=== PATIENT | female | born 1960 | race Caucasian/White ===

== ENCOUNTER 2020-07-16 15:35 | Outpatient (REF) | payer OTHER, SELFPAY ==
[2020-07-16 18:33] LABS: Thyroid Stimulating Hormone 2.99 mIU/mL (0.32-4.0)
== END 2020-07-16 15:36 | disposition home or self-care (01) ==
LOC: HO.MANLR 15:35
PROVIDERS: PCP Internal Medicine; Visit Provider Internal Medicine
DX: E03.9 Hypothyroidism, unspecified (principal)
CPT/HCPCS: 84439; 84443

== ENCOUNTER 2021-03-28 15:00 | Outpatient (REF) | payer OTHER, SELFPAY ==
[2021-03-28 18:44] LABS: Free T4 (Free Thyroxine) 1.05 ng/dL (0.71-1.85); Thyroid Stimulating Hormone 2.62 uIU/mL (0.32-4.0); Vitamin D 25-OH Total 45.5 ng/mL (>30)
== END 2021-03-28 15:01 | disposition home or self-care (01) ==
LOC: HO.MANLDS 15:00
PROVIDERS: PCP Internal Medicine; Visit Provider Physician Assistant
DX: E03.9 Hypothyroidism, unspecified (principal); E55.9 Vitamin D deficiency, unspecified
CPT/HCPCS: 36415; 82306; 84439; 84443

== ENCOUNTER 2022-02-27 08:53 | Outpatient (REF) | payer OTHER, SELFPAY ==
[2022-02-27 11:06] LABS: MANUAL DIFF FLAG NO
[2022-02-27 11:15] LABS: Basophils Absolute Auto 0.1 X10*3/uL (0.0-0.2); Basophils Percent Auto 1.1 % (0-2); Eosinophils Absolute Auto 0.4 X10*3/uL (0.0-0.4); Eosinophils Percent Auto 5.7 % (0-4); Hematocrit 42.6 % (37.0-47.0); Hemoglobin 14.1 g/dl (12.0-16.0); Imm Gran Abs Auto 0.08 X10*3/uL (0.00-0.03); Imm Gran Pct Auto 1.1 % (0.0-0.4); Lymphocytes Absolute Auto 2.2 X10*3/uL (1.2-4.9); Lymphocytes Percent Auto 29.5 % (20-40); Mean Corpuscular HGB Conc 33.1 g/dl (31.0-35.0); Mean Corpuscular Hemoglobin 30.3 pg (27.0-33.0); Mean Corpuscular Volume 91.6 fL (80.0-98.0); Mean Platelet Volume 12.2 fL (9.4-12.3); Monocytes Absolute Auto 0.9 X10*3/uL (0.1-1.2); Monocytes Percent Auto 11.8 % (2-11); Neutrophils Absolute Auto 3.9 x10*3/uL (2.0-8.3); Neutrophils Percent Auto 50.8 % (45-73); Platelet Count 327 X10*3/uL (160-400); Red Blood Count 4.65 X10*6/uL (4.20-5.50); Red Cell Distribution Width 12.2 % (11.0-16.0); White Blood Count 7.6 X10*3/uL (4.8-10.8)
[2022-02-27 11:50] LABS: Free T4 (Free Thyroxine) 0.98 ng/dL (0.71-1.85); Thyroid Stimulating Hormone 2.74 uIU/mL (0.32-4.0); Vitamin D 25-OH Total 32.4 ng/mL (>30)
[2022-02-27 11:53] LABS: Alanine Aminotransferase 20 U/L (0-31); Albumin Level 4.3 g/dL (3.5-5.0); Alkaline Phosphatase 77 U/L (39-117); Anion Gap 13 (12-20); Aspartate Amino Transferase 21 U/L (5-31); Bilirubin Total 0.4 mg/dL (0.0-1.0); Blood Urea Nitrogen 13 mg/dL (9-16); Carbon Dioxide 28 mmol/L (22-29); Chloride 101 mmol/L (96-108); Cholesterol 227 mg/dL; Estimated Glomerular Filt Rate > 60; Glucose Random 96 mg/dL (60-115); HDL Cholesterol 53 mg/dL; LDL Cholesterol Calculated 151 mg/dl; Sodium 137 mmol/L (135-145); Total Protein 7.3 g/dL (6.5-8.0); Triglycerides 117 mg/dL
== END 2022-02-27 08:54 | disposition home or self-care (01) ==
LOC: HO.MANLDS 08:53
PROVIDERS: PCP Internal Medicine; Visit Provider Physician Assistant
DX: Z23 Encounter for immunization (principal)
CPT/HCPCS: 36415; 80053; 80061; 82306; 84439; 84443; 85025

== ENCOUNTER 2023-03-31 11:37 | Outpatient (REF) | payer OTHER, SELFPAY ==
[2023-03-31 13:59] LABS: MANUAL DIFF FLAG NO
[2023-03-31 14:16] LABS: Basophils Absolute Auto 0.1 X10*3/uL (0.0-0.2); Basophils Percent Auto 1.1 % (0-2); Eosinophils Absolute Auto 0.2 X10*3/uL (0.0-0.4); Eosinophils Percent Auto 2.4 % (0-4); Hematocrit 42.5 % (37.0-47.0); Hemoglobin 14.1 g/dl (12.0-16.0); Imm Gran Abs Auto 0.02 X10*3/uL (0.00-0.03); Imm Gran Pct Auto 0.3 % (0.0-0.4); Lymphocytes Percent Auto 31.3 % (20-40); Mean Corpuscular HGB Conc 33.2 g/dl (31.0-35.0); Mean Corpuscular Hemoglobin 30.8 pg (27.0-33.0); Mean Corpuscular Volume 92.8 fL (80.0-98.0); Monocytes Absolute Auto 0.8 X10*3/uL (0.1-1.2); Monocytes Percent Auto 12.2 % (2-11); Neutrophils Absolute Auto 3.3 x10*3/uL (2.0-8.3); Neutrophils Percent Auto 52.7 % (45-73); Platelet Count 271 X10*3/uL (160-400); Red Blood Count 4.58 X10*6/uL (4.20-5.50); Red Cell Distribution Width 12.5 % (11.0-16.0); White Blood Count 6.2 X10*3/uL (4.8-10.8)
[2023-03-31 14:32] LABS: Alanine Aminotransferase 19 U/L (0-31); Albumin Level 4.1 g/dL (3.5-5.0); Alkaline Phosphatase 90 U/L (39-117); Anion Gap 14 (12-20); Aspartate Amino Transferase 23 U/L (5-31); Bilirubin Total 0.8 mg/dL (0.0-1.0); Blood Urea Nitrogen 9 mg/dL (9-16); Calcium 9.8 mg/dL (8.4-10.2); Carbon Dioxide 27 mmol/L (22-29); Chloride 104 mmol/L (96-108); Cholesterol 196 mg/dL; Estimated Glomerular Filt Rate > 60; Glucose Random 101 mg/dL (60-115); HDL Cholesterol 58 mg/dL; LDL Cholesterol Calculated 121 mg/dl; Potassium 4.8 mmol/L (3.3-5.1); Sodium 140 mmol/L (135-145); Total Protein 7.2 g/dL (6.5-8.0); Triglycerides 89 mg/dL
[2023-03-31 14:42] LABS: Free T4 (Free Thyroxine) 1.07 ng/dL (0.71-1.85); Thyroid Stimulating Hormone 1.63 uIU/mL (0.32-4.0)
== END 2023-03-31 11:38 | disposition home or self-care (01) ==
LOC: HO.MANLDS 11:37
PROVIDERS: Visit Provider Physician Assistant
DX: Z00.00 Encounter for general adult medical examination without abnormal findings (principal); E03.8 Other specified hypothyroidism
CPT/HCPCS: 36415; 80053; 80061; 84439; 84443; 85025

== ENCOUNTER 2024-02-21 14:11 | Outpatient (REF) | payer OTHER, SELFPAY ==
--- NOTE | ~2024-02-21 | MM_ITS ---
EXAMINATION: MM SCREENING DIGITAL BREAST TOMOSYNTHESIS, BILATERAL CLINICAL INFORMATION: Screening. Asymptomatic. COMPARISON: Mammography: This study is compared with prior exams dating back to 2016. TECHNIQUE: Digital breast tomosynthesis is performed in both the craniocaudal and mediolateral oblique views along with computer-aided detection (CAD). Synthesized 2D images are generated from the tomosynthesis. FINDINGS: There are scattered areas of fibroglandular density (ACR BI-RADS breast composition Category b). There are no significant masses, abnormal calcifications, or other abnormalities. MM/MM tomosynthesis screening BI IMPRESSION: No mammographic evidence of malignancy. ASSESSMENT: BI-RADS BI-RADS 1 - Negative RECOMMENDATION: Routine annual mammography screening. 1 year F/U This examination should not preclude the clinical evaluation of a suspicious palpable abnormality. This patient's information was entered into a reminder system with a target due date for their next mammogram.
== END 2024-02-21 14:12 | disposition home or self-care (01) ==
LOC: HO.MAMMO 14:11
PROVIDERS: Visit Provider Physician Assistant
DX: Z12.31 Encounter for screening mammogram for malignant neoplasm of breast (principal)
CPT/HCPCS: 77063; 77067

== ENCOUNTER → 2024-02-21 14:15 | Outpatient (BNV) | payer OTHER, SELFPAY | PROVIDERS: Visit Provider Radiology Diagnostic Radiology | DX: Z12.31 Encounter for screening mammogram for malignant neoplasm of breast (principal) | CPT/HCPCS: 77063; 77067 ==

== ENCOUNTER 2024-03-29 11:46 | Outpatient (REF) | payer OTHER, SELFPAY ==
[2024-03-29 13:50] LABS: Basophils Absolute Auto 0.1 X10*3/uL (0.0-0.2); Basophils Percent Auto 1.4 % (0-2); Eosinophils Absolute Auto 0.3 X10*3/uL (0.0-0.4); Eosinophils Percent Auto 5.5 % (0-4); Hematocrit 39.9 % (37.0-47.0); Hemoglobin 13.5 g/dl (12.0-16.0); Imm Gran Abs Auto 0.02 X10*3/uL (0.00-0.03); Imm Gran Pct Auto 0.4 % (0.0-0.4); Lymphocytes Absolute Auto 1.8 X10*3/uL (1.2-4.9); Lymphocytes Percent Auto 32.3 % (20-40); MANUAL DIFF FLAG SCAN; Mean Corpuscular HGB Conc 33.8 g/dl (31.0-35.0); Mean Corpuscular Hemoglobin 31.3 pg (27.0-33.0); Mean Corpuscular Volume 92.4 fL (80.0-98.0); Monocytes Absolute Auto 0.7 X10*3/uL (0.1-1.2); Neutrophils Absolute Auto 2.7 x10*3/uL (2.0-8.3); Neutrophils Percent Auto 47.4 % (45-73); PLT CLUMP 1; Red Blood Count 4.32 X10*6/uL (4.20-5.50); Red Cell Distribution Width 12.4 % (11.0-16.0); SCAN SMEAR FLAG 1
[2024-03-29 14:10] LABS: Alanine Aminotransferase 17 U/L (0-31); Albumin Level 4.1 g/dL (3.5-5.0); Alkaline Phosphatase 75 U/L (39-117); Anion Gap 10 (12-20); Aspartate Amino Transferase 21 U/L (5-31); Bilirubin Total 0.6 mg/dL (0.0-1.0); Blood Urea Nitrogen 10 mg/dL (9-16); Calcium 9.5 mg/dL (8.4-10.2); Carbon Dioxide 28 mmol/L (22-29); Chloride 107 mmol/L (96-108); Cholesterol 209 mg/dL (<200); Estimated Glomerular Filt Rate > 60; Glucose Random 90 mg/dL (60-115); HDL Cholesterol 55 mg/dL (>40); LDL Cholesterol Calculated 137 mg/dL (<100); Potassium 4.2 mmol/L (3.3-5.1); Sodium 141 mmol/L (135-145); Total Protein 7.2 g/dL (6.5-8.0); Triglycerides 88 mg/dL (<150)
[2024-03-29 14:24] LABS: Mean Platelet Volume 13.2 fL (9.4-12.3); Platelet Count 213 X10*3/uL (160-400); White Blood Count 5.6 X10*3/uL (4.8-10.8)
[2024-03-29 14:25] LABS: SLIDE REVIEW VERIFIED
== END 2024-03-29 11:47 | disposition home or self-care (01) ==
LOC: HO.MANLDS 11:46
PROVIDERS: Visit Provider Physician Assistant
DX: Z00.00 Encounter for general adult medical examination without abnormal findings (principal)
CPT/HCPCS: 36415; 80053; 80061; 85025

== ENCOUNTER 2025-04-24 11:31 | Outpatient (REF) | payer OTHER, SELFPAY ==
--- OUTSIDE RECORDS SUMMARY | 2025-04-24 12:54 | XMS_ITS | Data Portability ---
Author Organization [facility], Telehealth Patient Home Address [address] [place] [address] Assessment Encounter Date Assessment Date Assessment LastModified by Organization Details LastModified Time 02/15/2024 02/15/2024 The patient denies little pleasure in activities they find enjoyable, feeling depressed, difficulties sleeping, feeling tired or having little energy, change in appetite, feeling guilty, overwhelmed or unmotivated. The patient denies suicidal ideation, thoughts of hurting themselves or others. Their mood is appropriate, they show good judgement and clear understanding of the conversation. They are orientated to time, place and person. They are not expressing any concerning thoughts or actions that would need further investigation and treatment for mental health. [email or web address] Not available 02/15/2024 16:02:44 Plan of Treatment Reminders Order Date Submit Date Provider Last Modified By Organization Details Last Modified Time Details Appointments ANNUAL EXAM 2025 03:45P NORIS HUERTA Not available Not available Not available Lab CMP, serum or plasma 2024 025 [facility], [address] [place] [address], [id number], 04/03/2025 16:20:10 CBC w/ auto diff 2024 025 [facility], [address] [place] [address], [id number], 04/03/2025 16:20:10 lipid panel, blood 2024 025 [facility], [address] [place] [address], [id number], 04/03/2025 16:20:10 vitamin D, 25-hydrox y, total, serum 2024 025 [facility], [address] [place] [address], [address], 04/03/2025 16:20:10 hemoglobi n A1c, QN, blood 2024 025 [facility], [address] [place] [address], [id number], 04/03/2025 16:20:10 CMP, serum or plasma 2023 024 [facility], [address] [place] [address], [address], 03/30/2024 11:29:09 CBC w/ auto diff 2023 024 [facility], [address] [place] [address], [address], 03/30/2024 11:29:09 lipid panel, blood 2023 024 [facility], [address] [place] [address], [id number], 03/30/2024 11:29:09 TSH + free T4, serum 2022 023 [facility], [address] [place] [address], [address], 04/01/2023 12:01:12 CMP, serum or plasma 2022 023 [facility], [address] [place] [address], [id number], 04/01/2023 12:01:12 CBC w/ auto diff 2022 023 [facility], [address] [place] [address], [address], 04/01/2023 12:01:12 lipid panel, blood 2022 023 [facility], [address] [place] [address], [address], 04/01/2023 12:01:12 CMP, serum or plasma 2021 [facility], [address] [place] [address], [id number], 03/02/2022 12:01:33 CBC w/ auto diff 2021 [facility], [address] [place] [address], [address], 02/03/2022 14:40:27 lipid panel, serum 2021 022 [facility], [address] [place] [address], [address], 02/03/2022 14:40:26 vitamin D, 25-hydrox y, total, serum 2021 [facility], [address] [place] [address], [address], 02/03/2022 14:40:27 TSH + free T4, serum 2021 [facility], [address] [place] [address], [address], 02/03/2022 14:40:27 Referral gynecolog ist referral 2023 024 [email or web address] Gemma Francois MD, [address] [place] [address] [place], [address], 02/16/2024 09:30:23 gastroent erologist referral 2021 022 [email or web address] 10 Lamont Springer MD, [address] [place] [address], [address], 02/04/2022 08:19:30 Procedures None recorded. Surgeries None recorded. Imaging MAMMO, screening , digital, bilateral [address] [place], [address], 02/29/2024 08:15:20 MAMMO, screening , digital, bilateral [address] [place], [address], 02/17/2022 09:57:36 Medication Orders Cipro 500 mg tablet 2022 023 [facility], [address] [place], [address], 02/15/2024 15:42:04 Medrol (Christ) 4 mg tablets in a dose pack 2022 023 [facility], [address] [place], [address], 02/15/2024 15:42:14 Patient TargetsNo targets recorded. Patient InstructionsNo instructions recorded. 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 [email or web address] [address] [place], [address], 03/24/2024 08:41:10 Result Notes None recorded. Problems Name Problem SNOMED Code Status Onset Date Resolution Date Notes Provider Name and Address Organization Details Recorded Time Hypothyroi dism 25776350 Active 2018 Not Available [facility] 1 09:54:52 Vitamin D deficiency 23544060 Active 2018 Not Available [facility] 1 09:54:52 Orbital cellulitis 210342574 Active 2022 NORIS SANTOS [address] [place] [address], [address], [facility] 3 14:08:45 Orbital cellulitis 241924430 Active 2022 NORIS SANTOS [address] [place] [address], [address], [facility] 3 14:09:10 Polyp of colon 88462241 Active 2010 Not Available [facility] 1 09:54:52 Gastric reflux 019048311 Active 2017 Not Available [facility] 1 09:54:52 Problem Notes None recorded. Procedures Surgical History Date Name Laterality Status Provider Name and Address Organization Details Recorded Time 024 Colonoscopy completed Helena Kim [facility] 08/07/2024 11:21:27 016 Date of Last Pap Smear completed Collette Hernandez NP, S [address] [place] [address], [address], [facility] 11/21/2018 15:09:52 tonsillectomy completed Collette fish NP, S [address] [place] [address], [address], [facility] 11/21/2018 15:07:07 appendectomy completed Collette arias NP, S [address] [place] [address], [address], [facility] 11/21/2018 15:07:26 cholecystectomy completed Collette hua NP, S [address] [place] [address], [address], [facility] 11/21/2018 15:07:35 hernia repair completed Collette fish NP, S [address] [place] [address], [address], [facility] 11/21/2018 15:07:59 Imaging Results None recorded. Procedure Notes None recorded. Medical Equipment None Reported. Allergies Allergen ID Allergen Name Allergen Category Reaction Reaction Severity Criticality Documentation Date Start Date Code Code System Note Provider Name and Address Organization Details Recorded Time 4517 polysorba ramiro medicatio n hives Not available Not available 03/03/2021 8561 [facility] 16:18:46 799 Product containin g penicilli n (product) medicatio n rash Not available Not available 01/13/2018 02659 8001 SNOMED Collette Hernandez NP, S [address] [place] [address], [address], [facility] 8 14:21:59 800 erythromy maty medicatio n rash Not available Not available 01/13/2018 4053 RxNorm Collette Hernandez NP, S [address] [place] [address], [address], [facility] 8 14:22:39 801 banana extract food,medi cation angioedem a Not available Not available 01/13/2018 45151 9 RxNorm Collette Hernandez NP, S [address] [place] [address], [address], [facility] 8 14:23:04 808 atorvasta tin medicatio n Not available Not available Not available 01/14/2018 99807 RxNorm [facility] 8 10:32:40 Medications Name Sig Start Date Stop Date Status Note LastModified by Organization Details LastModified Time prednisone 10 mg tablet 5TABS EVERY DAY X3 DAYS, 4TABS DAILY X3DAYS, 3TABS DAIY X3DAYS, 2TABS DAILY X3DAYS, 1TAB ADAY X3DAYS 03/03 completed Not Available Not Available Not Available ranitidine 300 mg tablet Take 1 tablet every day by oral route. 02/03 completed Not Available Not Available Not Available prednisone 20 mg tablet PLEASE SEE ATTACHED FOR DETAILED DIRECTION S 02/03 completed Not Available Not Available Not Available ciprofloxac in 500 mg tablet TAKE 1 TABLET BY MOUTH EVERY 12 HOURS FOR 10 DAYS 02/14 completed Not Available Not Available Not Available sulfamethox azole 800 mg-trimetho prim 160 mg tablet TAKE 1 TABLET BY MOUTH TWICE A DAY FOR 7 DAYS 03/03 completed Not Available Not Available Not Available levothyroxi ne 25 mcg tablet 11/21 completed Not Available Not Available Not Available pantoprazol e 20 mg tablet,deedee yed release Take 1 tablet 3 times a week by oral route. 11/21 completed Not Available Not Available Not Available levothyroxi ne 75 mcg tablet TAKE 1 TABLET BY MOUTH EVERY DAY active Not Available Not Available No t Available levothyroxi ne 50 mcg tablet TAKE 1 TABLET BY MOUTH EVERY DAY WITH 25MCG TAB 11/21 completed Not Available Not Available Not Available triamcinolo ne acetonide 0.1 % topical ointment APPLY TO AFFECTED AREA TWICE A DAY 02/03 completed Not Available Not Available Not Available methylpredn isolone 4 mg tablets in a dose pack TAKE 6 TABLETS ON DAY ONE THEN DECREASE BY 1 TABLET EVERY DAY PER PACKAGE DIRECTION S 02/14 completed Not Available Not Available Not Available doxycycline hyclate 100 mg tablet TAKE 1 TABLET TWICE A DAY BY ORAL ROUTE FOR 1 DAY. 02/09 completed Not Available Not Available Not Available naproxen 500 mg tablet Take 1 tablet twice a day by oral route for 5 days. 03/03 completed Not Available Not Available Not Available levothyroxi ne 50 mcg 1 po daily 11/21 completed Not Available Not Available Not Available Vitamin D3 50 mcg (2,000 unit) capsule Take by oral route. 02/03 completed Not Available Not Available Not Available [employer] COVID-19 Antigen Home Test kit TEST DIRECTED TODAY 02/09 completed Not Available Not Available Not Available Vitals Date Recorded Body height Body mass index (BMI) Body weight Heart rate Oxygen saturation Oxygen saturation in Arterial blood by Pulse oximetry Systolic And Diastolic Provider Name and Address Organization Details Last Updated DateTime 2 154.94 cm 33.5 kg/m2 56289.6 5 g 68 /min 99 % 99 % 150/78 mm[Hg] Victorina Rich [facility] 2 14:18:09 Date Recorded Heart rate Oxygen saturation Oxygen saturation in Arterial blood by Pulse oximetry Body weight Systolic And Diastolic Provider Name and Address Organization Details Last Updated DateTime 3 53 /min 97 % 97 % 06394.0 2 g 148/78 mm[Hg] Meenakshi Decker [facility] 3 15:42:14 Date Recorded Body height Body mass index (BMI) Body weight Heart rate Oxygen saturation Oxygen saturation in Arterial blood by Pulse oximetry Systolic And Diastolic Provider Name and Address Organization Details Last Updated DateTime 4 154.94 cm 33.8 kg/m2 82783.6 7 g 79 /min 97 % 97 % 128/78 mm[Hg] Helena Kim [facility] 4 15:45:29 Date Recorded Body weight Oxygen saturation Oxygen saturation in Arterial blood by Pulse oximetry Heart rate Systolic And Diastolic Provider Name and Address Organization Details Last Updated DateTime 5 59173.2 6 g 96 % 96 % 78 /min 138/80 mm[Hg] Mariaa Robert [facility] 5 15:55:32 Date Recorded Body height Body mass index (BMI) Body weight Heart rate Oxygen saturation Oxygen saturation in Arterial blood by Pulse oximetry Systolic And Diastolic Provider Name and Address Organization Details Last Updated DateTime 3 154.94 cm 33.3 kg/m2 41721.2 6 g 71 /min 99 % 99 % 134/72 mm[Hg] Lay Bhagat [facility] 3 14:06:11 Social History Question Answer Notes LastModified by Organizat ion Details LastModified Time Tobacco Smoking Status Never Smoker Not Available [facility] 08/13/2020 03:36:23 What Was The Date Of Your Most Recent Tobacco Screening? 04/03/2025 [email or web address] Information not available 04/03/2025 Sex: Unknown Functional Status Question Answer Note LastModified by Organization D etails LastModified Time Do you or have you ever used any other forms of tobacco or nicotine? No [email or web address] Information not available 02/09/2023 Mental Status None recorded. Family History Relationship Description Onset Age of this Age Resolved Age Notes LastModified by Organization Details LastModified Time Mother Coronary arterioscler osis 69 bee Not available 2018 15:06:34 Sister Hypothyroidi sm [email or web address] Not available 15:46:58 Sister Gastroesopha geal reflux disease [email or web address] Not available 15:46:58 Father Cerebrovascu lar accident 91 [email or web address] Not available 14:32:33 Medical History No medical history recorded. Gynecological History Statement/Question Response If Post Menopausal, Age at Menopause 49 HPV Vaccine N Date of Last Pap Smear 08/04/2016 Obstetrics History GPAL:G 0 P 0 0 0 0 Immunizations Vaccine Type Date Status Note Provider Sergio christie and Address Organization Details Recorded Time Tdap 07/11/2016 completed Not Available [facility] 08/08/2023 14:05:44 COVID-19 vaccine, vector-nr, rS-ChAdOx1, PF, 0.5 mL 02/13/2021 completed Not Available [facility] 14:05:44 Past Encounters Encounter ID Performer Location Encounter Start Date Encounter Closed Date Diagnosis/Indication Diagnosis SNOMED-CT Code Diagnosis ICD10 Code Diagnosis Note [id number] Collette Hernandez NP, S [facility] [address] [facility], [place] [address] 01/14/2018 10:22:40 01/14/2018 12:09:56 Pes anserinus tendinitis and bursitis 493963613 M76.899 rest X 1 week, intol IBU-take extra strength tylenol, 2-TID use neophrene support with driving, extended standing, use baby steps for stairs- do not carry heavy items ice for 20 mins QID call if no better Hypothyroidism 66193939 E03.9 continue medication at increased dose Vitamin D deficiency 347 66026 E55.9 much improved, continue OTC 2,000 IU vitamin D3 [id number] Davi Vernon DO [facility] [address],[place] [address] 11/21/2018 15:27:23 11/21/2018 16:13:13 Adult health examination 853832363 Z00.00 Gynecologi c examination 21131080 Z01.419 Vitamin D deficiency 347 09534 E55.9 continue OTC 2,000 IU vitamin D3 Hypothyroidism 20104901 E03.9 Gastric reflux 055124922 K21.9 pt wants to d/c pantoprazo le, avoids triggers like caffeine Polyp of colon 44548735 K63.5 [place] [id number] Davi Vernon [facility] [address] [place] [address], [place] [address] 05/19/2019 14:40:38 05/19/2019 15:04:56 Traumatic hematoma 057020330 T14.8XXA continue naproxen Fall on sa me level from slipping, tripping or stumbling 948336050 W01.0XXA Hypothyroidism 00447130 E03.9 Gastric reflux 237794675 K21.9 has been quiet [id number] Davi Vernon [facility] [address] [place] [address], [place] [address] 07/30/2020 15:23:12 07/31/2020 08:36:18 Hypothyroidism 01195295 E03.9 the patient is doing well TSH was wnl needs refill Posterior rhinorrhea 758 29546 R09.82 patient has a head cold from grand daughter who contracted it from day care no COVID exposure Nasal congestion 7857134 0 R09.81 will monitor symptoms, call if any concern [id number] Davi Vernon DO [facility] [address] [place] [address],[place] [address] 12/30/2020 09:38:53 12/30/2020 12:29:48 Contact dermatitis 31825518 L25.9 will fu with pred taper as patient has had this for two weeks and no benefit with topical steriod or calamine [id number] Davi Vernon [facility] [address] [place] [address],[place] [address] 03/03/2021 16:11:07 03/04/2021 09:05:47 Hypothyroidism 00659876 E03.9 the patient is doing well will need to recheck Vitamin D deficiency 347 81787 E55.9 will fu with recheck vitamin level Gastric reflux 771912806 K21.9 stable, avoid triggers Polyp of colon 80345043 K63.5 will fu [place] [id number] Davi Vernon [facility] [address] [facility],[place] [address] 02/03/2022 14:12:24 02/03/2022 14:47:01 Active or passive immunization 691881429 Z23 advisedref uses shingles vaccine Adult heal th examination 859008298 Z00.00 BP fine with recheck Screening colonoscopy 44 0332663 Z12.11 will send in referral Screening mammography 24 720321 Z12.31 will fu with referral [id number] Davi Vernon [facility] [address],[place] [address] 02/09/2023 15:28:35 02/10/2023 08:21:22 Active or passive immunization 169675871 Z23 advisedref uses shingles vaccine Adult heal th examination 632971155 Z00.00 BP fine with recheck Hypothyroidism 04063916 E03.8 the patient is doing well will need to recheck [id number] Davi Vernon [facility] [address] [facility],[place] [address] 08/09/2023 13:52:53 08/09/2023 14:27:04 Orbital cellulitis 049619001 H05.012 will set up with oral abx and medrol for the inflammati on [id number] Davi Vernon [facility] [address] [facility],[place] [address] 02/15/2024 15:26:59 02/16/2024 09:30:23 Active or passive immunization 426927690 Z23 advisedref uses shingles vaccine Adult heal th examination 524753721 Z00.00 BP is excellent Depression screening 171 857793 Z13.31 stable Screening mammography 24 167393 Z12.31 will fu with referral Screening for malignant neoplasm of cervix 116938840 Z12.[address] appt [id number] Davi Vernon DO [facility] [address] [facility],[place] [address] 04/03/2025 15:46:37 04/03/2025 16:33:26 General examination of patient 964745637 Z00.00 BP is excellent Health Concerns Section Related Observation LastModified by Organization Detai ls LastModified Time None Recorded Concern Status LastModified by Organization Details LastModified Time None Recorded Advance Directives Directive None Recorded Payers Insurance Date Sequence Insurance Name Policy Number Policy Post Covered Member ID Post Member ID Guarantor Name 04/03/2025 1 [facility] [employer]CARE TYPE I (HMO) Mickie Mirzaot [id number] Mickie Milton 04/03/2025 1 [facility] [employer] TYPE I (HMO) [id number] Mickie Milton [id number] Mickie Milton 04/03/2025 1 [facility] [id number] Mickie Mirzaot [id number] Mickie Milton 04/03/2025 1 [facility] Mickie Bermudez Milton [id number] Mickie Milton Notes Date Note Type Note Provider Name a de Address Organization Details Recorded Time 2 text/html Annual WellnessReported bypatient.Diet and Nutrition:healthy diet; discussed vitamin and supplement use; discussed portion control; discussed maintaining calcium balance; discussed diet improvement Fracture Risk:no history of fractures; no recent explained fracture; no sudden unexplained fractures; no previous musculoskeletal injuries Physical Activity:exercises on a regular basis; recent increase in physical activity; good physical condition; hiking, skiing and skating during the winter working on cutting out the alcohol Additional Lifestyle Factors:no tobacco use; drinks alcohol (mild-moderate) Depression Risk:never feels sad, empty, or tearful; no loss of interest in activities; no significant changes in weight; no sleep disturbances or insomnia; no agitation; no loss of energy; no feelings of worthlessness or guilt; no thoughts of suicide; no history of depression; no history of mood disorders Hearing:no loss of hearing Vision:no vision problems NORIS SANTOS [address] [place], [address], [facility] 02/03/2022 14:40:17 3 text/html Annual WellnessReported bypatient.Diet and Nutrition:healthy diet; discussed vitamin and supplement use; discussed portion control; discussed maintaining calcium balance; discussed diet improvement Fracture Risk:no history of fractures; no sudden unexplained fractures; no previous musculoskeletal injuries Physical Activity:exercises on a regular basis; recent increase in physical activity; good physical condition; discussed weightbearing activities; discussed exercise habits Additional Lifestyle Factors:no tobacco use; drinks alcohol (mild-moderate) (couple beers during the weak); smokes marijuana occasionally Depression Risk:never feels sad, empty, or tearful; no loss of interest in activities; no significant changes in weight; no sleep disturbances or insomnia; no agitation; no loss of energy; no feelings of worthlessness or guilt; no thoughts of suicide; no history of depression; no history of mood disorders Hearing:no loss of hearing Vision:no vision problems the patient is going to schedule colonoscopy and her mammogram NORIS SANTOS [address] [place] [address], [address], [facility] 02/09/2023 16:08:12 3 text/html c/o eye infection left eye the patient started with a stye on Wednesdaywent to , told her to put warm compressesthe patient has swelling of her upper and lower eyelid, red, swollen with purulent discharge will start on cipro and medrol will update me throughout the week injured her right hand but that is healing NORIS SANTOS [address] [place], [address], [facility] 08/09/2023 14:15:24 4 text/html Annual WellnessReported bypatient.Diet and Nutrition:healthy diet; discussed vitamin and supplement use; discussed portion control; discussed maintaining calcium balance; discussed diet improvement Fracture Risk:no history of fractures; no recent explained fracture; no sudden unexplained fractures; no previous musculoskeletal injuries Physical Activity:exercises on a regular basis; recent increase in physical activity; good physical condition; discussed weightbearing activities; discussed exercise habits Additional Lifestyle Factors:no tobacco use; drinks alcohol (mild-moderate) Depression Risk:never feels sad, empty, or tearful; no loss of interest in activities; no significant changes in weight; no sleep disturbances or insomnia; no agitation; no loss of energy; no feelings of worthlessness or guilt; no thoughts of suicide; no history of depression; no history of mood disorders Hearing:no loss of hearing Vision:no vision problemsNotes:last dentist appt was yesterday, 02/14/24 NORIS SANTOS [address] [place] [address], [phone], [facility] 02/15/2024 16:15:59 text/html Annual WellnessReported bypatient.Diet and Nutrition:healthy diet; discussed vitamin and supplement use; discussed portion control; discussed maintaining calcium balance; discussed diet improvement Fracture Risk:no history of fractures; no recent explained fracture; no sudden unexplained fractures; no previous musculoskeletal injuries Physical Activity:exercises on a regular basis; recent increase in physical activity; good physical condition Additional Lifestyle Factors:no tobacco use Depression Risk:never feels sad, empty, or tearful; no loss of interest in activities; no significant changes in weight; no sleep disturbances or insomnia; no agitation; no loss of energy; no feelings of worthlessness or guilt; no thoughts of suicide; no history of depression; no history of mood disorders Hearing:no loss of hearing Vision:no vision problems NORIS SANTOS [address] [place], [id number], [facility] 04/03/2025 16:22:48 OBGyn Episode No OBEpisode recorded.
[2025-04-24 13:51] LABS: MANUAL DIFF FLAG NO
[2025-04-24 13:59] LABS: Hematocrit 39.1 % (37.0-47.0); Hemoglobin 13.4 g/dl (12.0-16.0); Imm Gran Abs Auto 0.03 X10*3/uL (0.00-0.03); Imm Gran Pct Auto 0.5 % (0.0-0.4); Lymphocytes Absolute Auto 2.0 X10*3/uL (1.2-4.9); Mean Corpuscular HGB Conc 34.3 g/dl (31.0-35.0); Mean Corpuscular Hemoglobin 30.7 pg (27.0-33.0); Mean Corpuscular Volume 89.7 fL (80.0-98.0); NRBC Abs Auto 0.000 X10*3/uL (0.0-0.012); NRBC Pct Auto 0.0 /100WBC (0.0-0.2); Platelet Count 265 X10*3/uL (160-400); Red Blood Count 4.36 X10*6/uL (4.20-5.50); White Blood Count 6.6 X10*3/uL (4.8-10.8)
[2025-04-24 14:11] LABS: Hemoglobin A1C 114.5318 umol/L; Total Hemoglobin (HGBA1C) 3497.3863 umol/L
[2025-04-24 14:31] LABS: Alanine Aminotransferase 22 U/L (0-31); Albumin Level 4.4 g/dL (3.5-5.0); Alkaline Phosphatase 83 U/L (39-117); Anion Gap 13 (12-20); Aspartate Amino Transferase 26 U/L (5-31); Blood Urea Nitrogen 13 mg/dL (9-16); Calcium 9.1 mg/dL (8.4-10.2); Carbon Dioxide 26 mmol/L (22-29); Chloride 103 mmol/L (96-108); Cholesterol 210 mg/dL (<200); Estimated Glomerular Filt Rate > 60; HDL Cholesterol 57 mg/dL (>40); Potassium 4.0 mmol/L (3.3-5.1); Sodium 138 mmol/L (135-145); Total Protein 7.1 g/dL (6.5-8.0); Triglycerides 103 mg/dL (<150)
== END 2025-04-24 11:32 | disposition home or self-care (01) ==
LOC: HO.MANLDS 11:31
PROVIDERS: Visit Provider Physician Assistant
DX: Z00.00 Encounter for general adult medical examination without abnormal findings (principal); Z13.1 Encounter for screening for diabetes mellitus
CPT/HCPCS: 36415; 80053; 80061; 82306; 83036; 85025